=== PATIENT | female | born 1955 | race Caucasian/White ===

== ENCOUNTER → 2016-09-09 | Outpatient (CLI) | payer MEDICARE, OTHER ==
[~2016-09-09] MED LIST: AMARYL4 MG PO; FLEXERIL5 MG PO; GLUCOPHAGE1000 MG PO; GLUCOPHAGE500 MG/TAB PO; LANTUS100 U/ML SC; NORCO 325 MG-7.1 TAB PO; ZOCOR5 MG PO
== END ==
LOC: MHCPAIN 09:23
DX: G89.29 Other chronic pain (principal); M47.817 Spondylosis without myelopathy or radiculopathy, lumbosacral region; M54.16 Radiculopathy, lumbar region; M53.3 Sacrococcygeal disorders, not elsewhere classified; M96.1 Postlaminectomy syndrome, not elsewhere classified; M54.81 Occipital neuralgia; M50.90 Cervical disc disorder, unspecified, unspecified cervical region; Z87.891 Personal history of nicotine dependence
CPT/HCPCS: G0463

== ENCOUNTER → 2016-09-14 | Outpatient (CLI) | payer MEDICARE, OTHER | LOC: MHCPAIN 11:01 | DX: G89.29 Other chronic pain (principal); M47.817 Spondylosis without myelopathy or radiculopathy, lumbosacral region; M54.16 Radiculopathy, lumbar region; M53.3 Sacrococcygeal disorders, not elsewhere classified; M54.81 Occipital neuralgia; M50.90 Cervical disc disorder, unspecified, unspecified cervical region; G47.00 Insomnia, unspecified; M96.1 Postlaminectomy syndrome, not elsewhere classified; Z87.891 Personal history of nicotine dependence | CPT/HCPCS: G0463; J1040 ==

== ENCOUNTER → 2016-09-21 | Outpatient (CLI) | payer MEDICARE, OTHER | LOC: MHCPAIN 07:32 | DX: G57.02 Lesion of sciatic nerve, left lower limb (principal); G57.01 Lesion of sciatic nerve, right lower limb | CPT/HCPCS: J1040 ==

== ENCOUNTER → 2016-10-27 | Outpatient (CLI) | payer MEDICARE, OTHER ==
[~2016-10-27] MED LIST changes: +ALBUTEROL0.83 MG/ML IH; +AMBIEN 5MG TABLE5 MG PO; +BROVANA15 MCG/2 M IH; +CARAFATE 1GM1 G PO; +CRESTOR5 MG PO; +DEPAKOTE ER 50500 MG PO; +FERRO-TIME325 MG PO; +FLONASEALLERGY NS; +HCTZ 25MG TAB25 MG PO; +K-DUR20 MEQ PO; +KLOR-CON M2020 MEQ PO; +LASIX 40MG TABL40 MG PO; +LASIX 40MG40 MG/4 ML IJ; +LEVEMIR FLEX100 U/ML SQ; +LEVEMIR100 U/ML SQ; +LEVOXYL0.1 MG PO; +LEVOXYL0.125 MG PO; +MYRBETR50MG PO; +NEURONTIN300 MG/CAP PO; +NITROSTAT0.4 MG/TAB SL; +NORCO 325 MG-51 TAB PO; +NOVOLOGMIX70/30 SQ; +PLAVIX 75MG TAB75 MG PO; +PRILOSEC 20MG20 MG PO; +PULMICORT0.5 MG/2 M IH; +REQUIP 0.5MG0.5 MG PO; +SINGULAIR 110 MG/TAB PO; +SPIRIVA RE2.5 MCG/Ac IH; +TAGAMET300 MG PO; +TOPROL XL 50MG50 MG PO; +TYLENOL 325MG325 MG PO
== END ==
LOC: MHCPAIN 12:13
DX: G89.29 Other chronic pain (principal); M47.817 Spondylosis without myelopathy or radiculopathy, lumbosacral region; M54.81 Occipital neuralgia; M50.90 Cervical disc disorder, unspecified, unspecified cervical region; R51 Headache; Z87.891 Personal history of nicotine dependence
CPT/HCPCS: G0463

== ENCOUNTER → 2016-11-02 | Outpatient (CLI) | payer MEDICARE, OTHER ==
[~2016-11-02] MED LIST changes: -ALBUTEROL0.83 MG/ML IH; -AMBIEN 5MG TABLE5 MG PO; -BROVANA15 MCG/2 M IH; -CARAFATE 1GM1 G PO; -CRESTOR5 MG PO; -DEPAKOTE ER 50500 MG PO; -FERRO-TIME325 MG PO; -FLONASEALLERGY NS; -HCTZ 25MG TAB25 MG PO; -K-DUR20 MEQ PO; -KLOR-CON M2020 MEQ PO; -LASIX 40MG TABL40 MG PO; -LASIX 40MG40 MG/4 ML IJ; -LEVEMIR FLEX100 U/ML SQ; -LEVEMIR100 U/ML SQ; -LEVOXYL0.1 MG PO; -LEVOXYL0.125 MG PO; -MYRBETR50MG PO; -NEURONTIN300 MG/CAP PO; -NITROSTAT0.4 MG/TAB SL; -NORCO 325 MG-51 TAB PO; -NOVOLOGMIX70/30 SQ; -PLAVIX 75MG TAB75 MG PO; -PRILOSEC 20MG20 MG PO; -PULMICORT0.5 MG/2 M IH; -REQUIP 0.5MG0.5 MG PO; -SINGULAIR 110 MG/TAB PO; -SPIRIVA RE2.5 MCG/Ac IH; -TAGAMET300 MG PO; -TOPROL XL 50MG50 MG PO; -TYLENOL 325MG325 MG PO
== END ==
LOC: MHCPAIN 11:46
DX: M54.81 Occipital neuralgia (principal)
CPT/HCPCS: J1100

== ENCOUNTER → 2017-02-01 | Outpatient (CLI) | payer MEDICARE, OTHER | LOC: MHCPAIN 11:49 | DX: G89.29 Other chronic pain (principal); R51 Headache; M50.90 Cervical disc disorder, unspecified, unspecified cervical region; Z87.891 Personal history of nicotine dependence | CPT/HCPCS: G0463 ==

== ENCOUNTER → 2017-03-30 | Outpatient (CLI) | payer MEDICARE, OTHER | LOC: MHCPAIN 12:31 | DX: G89.29 Other chronic pain (principal); M50.90 Cervical disc disorder, unspecified, unspecified cervical region; R51 Headache; Z87.891 Personal history of nicotine dependence | CPT/HCPCS: G0463 ==

== ENCOUNTER → 2017-04-01 | Outpatient (CLI) | payer MEDICARE, OTHER | LOC: MHCPAIN 11:37 | DX: M50.321 Other cervical disc degeneration at C4-C5 level (principal) ==

== ENCOUNTER → 2017-04-07 | Outpatient (CLI) | payer MEDICARE, OTHER | LOC: MHCPAIN 13:13 | DX: G89.29 Other chronic pain (principal); M50.90 Cervical disc disorder, unspecified, unspecified cervical region; R51 Headache | CPT/HCPCS: G0463 ==

== ENCOUNTER → 2017-05-06 | Outpatient (CLI) | payer MEDICARE, OTHER | LOC: MHCPAIN 07:37 | DX: M50.31 Other cervical disc degeneration, high cervical region (principal) ==

== ENCOUNTER → 2017-05-10 | Outpatient (CLI) | payer MEDICARE, OTHER | LOC: MHCPAIN 13:24 | DX: G89.29 Other chronic pain (principal); M50.90 Cervical disc disorder, unspecified, unspecified cervical region; R51 Headache | CPT/HCPCS: G0463 ==

== ENCOUNTER → 2017-05-27 | Outpatient (CLI) | payer MEDICARE, OTHER | LOC: MHCPAIN 09:07 | DX: M50.31 Other cervical disc degeneration, high cervical region (principal) | CPT/HCPCS: J2250; J3010 ==

== ENCOUNTER → 2017-07-05 | Outpatient (CLI) | payer MEDICARE, OTHER | LOC: MHCPAIN 12:22 | DX: G89.29 Other chronic pain (principal); M50.30 Other cervical disc degeneration, unspecified cervical region; M54.16 Radiculopathy, lumbar region; R51 Headache; Z87.891 Personal history of nicotine dependence | CPT/HCPCS: G0463 ==

== ENCOUNTER → 2017-07-14 | Outpatient (CLI) | payer MEDICARE, OTHER | LOC: MHCPAIN 11:48 | DX: G57.02 Lesion of sciatic nerve, left lower limb (principal) | CPT/HCPCS: J1040 ==

== ENCOUNTER → 2017-10-26 | Outpatient (CLI) | payer MEDICARE, OTHER | LOC: MHCPAIN 12:21 | DX: G89.29 Other chronic pain (principal); M47.817 Spondylosis without myelopathy or radiculopathy, lumbosacral region; M54.16 Radiculopathy, lumbar region; M53.3 Sacrococcygeal disorders, not elsewhere classified; M54.81 Occipital neuralgia; M50.90 Cervical disc disorder, unspecified, unspecified cervical region; R51 Headache | CPT/HCPCS: G0463 ==

== ENCOUNTER 2017-12-09 13:03 | Outpatient (RCR) | payer MEDICARE, OTHER | END 2018-03-09 | disposition home or self-care (01) | LOC: WSST | DX: R13.10 Dysphagia, unspecified (principal); K22.2 Esophageal obstruction | CPT/HCPCS: G8996-GN; G8997-GN; G8998-GN ==

== ENCOUNTER → 2017-12-16 | Outpatient (CLI) | payer MEDICARE, OTHER | LOC: COL.RAD 06:40 | DX: K22.2 Esophageal obstruction (principal) | CPT/HCPCS: A9541 ==

== ENCOUNTER → 2017-12-17 | Outpatient (CLI) | payer MEDICARE, OTHER | LOC: COL.RAD 08:31 | DX: K22.2 Esophageal obstruction (principal) | CPT/HCPCS: G8996-GN; G8997-GN; G8998-GN ==

== ENCOUNTER → 2018-01-25 | Outpatient (CLI) | payer MEDICARE, OTHER | LOC: MHCPAIN 13:00 | DX: G89.29 Other chronic pain (principal); M47.817 Spondylosis without myelopathy or radiculopathy, lumbosacral region; M54.16 Radiculopathy, lumbar region; M53.3 Sacrococcygeal disorders, not elsewhere classified; M96.1 Postlaminectomy syndrome, not elsewhere classified; M54.81 Occipital neuralgia; M50.90 Cervical disc disorder, unspecified, unspecified cervical region; R51 Headache | CPT/HCPCS: G0463 ==

== ENCOUNTER → 2018-02-02 | Outpatient (CLI) | payer MEDICARE, OTHER | LOC: MHCPAIN 10:39 | DX: M25.551 Pain in right hip (principal) | CPT/HCPCS: J1040 ==

== ENCOUNTER 2018-06-28 11:13 | Inpatient (IN) | payer MEDICARE, OTHER ==
[~2018-06-28] VITALS: Ht 160 cm; Wt 103.3 kg
[2018-06-28 12:15] VITALS: BP 120/64
--- NOTE | 2018-06-28 12:15 | NUR ---
PATIENT ADMITED VIA EMS INTO ROOM 312 FROM [place]. PATIENT WAS ADMITED IN [place] FOR CHEST PAIN, SOB, BLE EDEMA AND CHF EXACERBATION. PATIENT CURRENTLY DENIES SOB OR CHEST PAIN. BLE EDEMA REPORTEDLY IMPROVED FROM IV LASIX GIVEN IN HESSEL. NOTE +2 BLE EDEMA, NON PITTING. +2 PEDAL PULSES. A&P LUNG JENKINS CLEAR WITH SLIGHTLY DEMINISHED BASES. PATIENT HAS HX OF CHF. HEAD TO TOE ASSESSMENT COMPLETE. LEFT AC IV AND RIGHT FORARM IV TO INT. PATIENT ASKING ABOUT EATTING. ADA/AHA DIET. PATIENT ORIENTED TO ROOM. NO FAMILY AT BEDSIDE. CALL LIGHT IN REACH.
[2018-06-28] MEDS ORDERED: CARAFATE 1GM1 G PO (14:22)
[2018-06-28] MEDS ORDERED: DEPAKOTE ER 50500 MG PO (14:23)
[2018-06-28] MEDS ORDERED: CRESTOR5 MG PO (14:23)
[2018-06-28] MEDS ORDERED: MYRBETR50MG PO (14:24)
[2018-06-28] MEDS ORDERED: LASIX 40MG TABL40 MG PO (14:24)
[2018-06-28] MEDS ORDERED: BROVANA15 MCG/2 M IH (14:24)
[2018-06-28] MEDS ORDERED: TAGAMET300 MG PO (14:25)
[2018-06-28] MEDS ORDERED: PULMICORT0.5 MG/2 M IH (14:25)
[2018-06-28] MEDS ORDERED: FLONASEALLERGY NS (14:26)
[2018-06-28] MEDS ORDERED: FERRO-TIME325 MG PO (14:26)
[2018-06-28] MEDS ORDERED: NEURONTIN300 MG/CAP PO (14:26)
[2018-06-28] MEDS ORDERED: NOVOLOGMIX70/30 SQ ×2 (14:27→15:36)
[2018-06-28] MEDS ORDERED: HCTZ 25MG TAB25 MG PO (14:27)
[2018-06-28] MEDS ORDERED: LEVEMIR FLEX100 U/ML SQ (14:28)
[2018-06-28] MEDS ORDERED: LEVOXYL0.125 MG PO (14:29)
[2018-06-28] MEDS ORDERED: SINGULAIR 110 MG/TAB PO (14:29)
[2018-06-28] MEDS ORDERED: LEVOXYL0.1 MG PO (14:29)
[2018-06-28] MEDS ORDERED: PRILOSEC 20MG20 MG PO (14:30)
[2018-06-28] MEDS ORDERED: KLOR-CON M2020 MEQ PO (14:31)
[2018-06-28] MEDS ORDERED: SPIRIVA RE2.5 MCG/Ac IH (14:32)
[2018-06-28] MEDS ORDERED: REQUIP 0.5MG0.5 MG PO (14:32)
[2018-06-28] MEDS ORDERED: AMBIEN 5MG TABLE5 MG PO (14:33)
[2018-06-28] MEDS ORDERED: NORCO 325 MG-51 TAB PO (15:32)
[2018-06-28] MEDS ORDERED: LEVEMIR100 U/ML SQ (15:37)
[2018-06-28] MEDS ORDERED: K-DUR20 MEQ PO (15:40)
[2018-06-28] MEDS ORDERED: LASIX 40MG40 MG/4 ML IJ (15:43)
[2018-06-28] MEDS ORDERED: TYLENOL 325MG325 MG PO (15:47)
[2018-06-28] MEDS ORDERED: ALBUTEROL0.83 MG/ML IH (15:48)
[2018-06-28] MEDS ORDERED: PLAVIX 75MG TAB75 MG PO (16:05)
[2018-06-28] MEDS ORDERED: NITROSTAT0.4 MG/TAB SL (16:05)
[2018-06-28] MEDS ORDERED: TOPROL XL 50MG50 MG PO (16:05)
[2018-06-28 16:28] VITALS: BP 134/70; PULSE 76; TEMP 97.8
[2018-06-28 20:48] VITALS: BP 120/53; PULSE 86; TEMP 98.6
--- NOTE | 2018-06-28 21:00 | NUR ---
pt resting in bed A+Ox4. reports no pain. no SOA. BS 165- insulin given. no needs at this time. shift assessment complete. call light in reach
[2018-06-28 23:59] VITALS: BP 132/50; PULSE 80; TEMP 98.8
[2018-06-29] VITALS (9 sets, daily range): BP systolic 110–156; BP diastolic 52–81; PULSE 77–88; TEMP 97.9–98.7
--- NOTE | 2018-06-29 05:08 | NUR ---
pt had an uneventful night. reported no pain. pt reports not being able to sleep during night, reports it might be nerves for the heart cath today. pt has been NPO since midnight. VSS. no needs at this time. call light in reach
[2018-06-29 06:57] LABS: BASO % 0.5 % (0.0-2.0); EOS # 0.1 (0.0-0.7); EOS % 2.3 % (0-4.0); GRAN # 2.1 (1.4-6.5); GRAN % 49.4 % (42.2-75.2); HEMATOCRIT 37.6 % (37.0-47.0); HEMOGLOBIN 12.2 g/dl (12.5-16.0); LYMPH # 1.5 (1.2-3.4); LYMPH % 35.1 % (20.0-51.0); MEAN CELL VOLUME 96 fl (80.0-100.0); MEAN CORPUSCULAR HEMOGLOBIN 31 pg (27.0-31.0); MEAN CORPUSCULAR HGB CONC 32 g/dl (33.0-37.0); MONO # 0.5 (0.1-0.6); MONO % 12.2 % (1.7-9.3); PLATELET COUNT 99 K/mm3 (130-400); REDCELL DISTRIBUTION WIDTH-CV 13.6 % (11.5-14.5)
--- NOTE | 2018-06-29 06:57 | NUR ---
report given to STAR ALVAREZ. no needs at this time
[2018-06-29 07:15] LABS: BLOOD UREA NITROGEN 23 mg/dL (7-17); CREATININE, serum 0.76 (0.52-1.25); GLUCOSE 98 mg/dL (74-106)
--- NOTE | 2018-06-29 07:15 | NUR ---
Report received from STAR Douglas. PT in bed resting with at bedside, anitipating HC today with Dr. Lindsay, will continue to monitor.
[2018-06-29 07:16] LABS: ANION GAP 10 mmol/L (7-16); CALCIUM 9.5 mg/dL (8.4-10.2); CARBON DIOXIDE 28 mmol/L (22-30); CHLORIDE 106 mmol/L (98-107); POTASSIUM 3.9 mmol/L (3.4-5.0); SODIUM 144 mmol/L (137-145)
[2018-06-29 07:28] LABS: TROPONIN-I < 0.012 ng/mL (0.000-0.035)
--- NOTE | 2018-06-29 07:42 | NUR ---
Called Dr. Lindsay, he will be doing heart cath at 1200 today, ok to give all am meds except insulin and lasix. Will provide
--- NOTE | 2018-06-29 10:53 | NUR ---
Pt aware of plan of care. Assessment charted. Doing well, denies pain but states she did have soem chest pain this am that was 04/03. Will continue to monitor.
--- NOTE | 2018-06-29 12:00 | NUR ---
Pt went down for heart cath with biology laboratory assistant nurse via bed, will await return
--- NOTE | 2018-06-29 12:30 | NUR ---
ALL MEDICATIONS GIVEN VORB WITH MD. SEE MERGE FOR ALL MEDICATION ADMIN TIMES. SEE MERGE FOR ALL RASS DOCUMENTATION. POSITIVE BARBEAU'S TEST IN THE RIGHT WRIST.
--- NOTE | 2018-06-29 13:00 | NUR ---
Pt returned to floor at this time via bed with central lab technician staff. Flushed cheeks, but feels fine, VSS. R radial site WA no bleeding with band in place. Ordering food, ice water provided, at bedside, will continue to monitor.
--- NOTE | 2018-06-29 13:30 | NUR ---
MATI met with the patient and patient's , Harshal, to discuss discharge plan. The patient lives in [place] with her . She reports independence and does not use any DME. The patient's PCP is Dr. Harshal Vasquez and she receives her medications at the [facility] in [place]. She reports no difficulties obtaining her meds. The patient does not have advanced directives in EMR, but states that she does have them completed and at home. She states her is her DPOA-HC. The patient plans to return home with her upon discharge. No additional needs at this time.
--- NOTE | 2018-06-29 16:18 | NUR ---
Called Dr. Lindsay, he will not be starting any new meds at this time. Ok with discharge. Will continue to monitor.
--- NOTE | 2018-06-29 17:20 | NUR ---
Pt discharge completed at this time. Pt recieved discharge packet, discussed f/u appointment, dischage packet reviewed, answered all questions. INT d/c'd, tip intact. Pt R arm remains CDI, TR band off, bandaid applied, reviewed restrictions. Left via wc with medical staff. Family to drive home. Criteria met.
== END 2018-06-29 17:20 | disposition home or self-care (01) | DRG 287 ==
LOC: MEDICAL 11:13
PROVIDERS: Physician Assistant; ADMIT Family Medicine
PROC: 4A023N7 Measurement of Cardiac Sampling and Pressure, Left Heart, Percutaneous Approach (ICD-10-PCS; principal; 2018-06-29)
PROC: B2111ZZ Fluoroscopy of Multiple Coronary Arteries using Low Osmolar Contrast (ICD-10-PCS; principal; 2018-06-29)
DX: I25.119 Atherosclerotic heart disease of native coronary artery with unspecified angina pectoris (principal); I50.30 Unspecified diastolic (congestive) heart failure; Z79.4 Long term (current) use of insulin; E03.9 Hypothyroidism, unspecified; I11.0 Hypertensive heart disease with heart failure; E11.42 Type 2 diabetes mellitus with diabetic polyneuropathy; E78.5 Hyperlipidemia, unspecified; K21.9 Gastro-esophageal reflux disease without esophagitis; G47.33 Obstructive sleep apnea (adult) (pediatric); Z79.84 Long term (current) use of oral hypoglycemic drugs; Z88.2 Allergy status to sulfonamides; Z88.8 Allergy status to other drugs, medicaments and biological substances; Z87.891 Personal history of nicotine dependence; J44.9 Chronic obstructive pulmonary disease, unspecified
CPT/HCPCS: 99222-AI; 99232-AI; J1644; J1815; J2250; J3010; J7030; Q9967

== ENCOUNTER → 2019-07-07 | Outpatient (CLI) | payer MEDICARE, OTHER ==
[~2019-07-07] MED LIST changes: +ALBUTEROL0.83 MG/ML IH; +AMBIEN 5MG TABLE5 MG PO; +ASPIRIN 81M81 MG/TA2 PO; +BROVANA15 MCG/2 M IH; +CARAFATE 1GM1 G PO; +CRESTOR5 MG PO; +DEPAKOTE ER 50500 MG PO; +FERRO-TIME325 MG PO; +FLONASEALLERGY NS; +HCTZ 25MG TAB25 MG PO; +IMITREX100 MG PO; +K-DUR20 MEQ PO; +KLOR-CON M2020 MEQ PO; +LASIX 40MG TABL40 MG PO; +LASIX 40MG40 MG/4 ML IJ; +LEVEMIR FLEX100 U/ML SQ; +LEVEMIR100 U/ML SQ; +LEVOXYL0.1 MG PO; +LEVOXYL0.125 MG PO; +MYRBETR50MG PO; +NEURONTIN300 MG/CAP PO; +NITROSTAT0.4 MG/TAB SL; +NORCO 325 MG-51 TAB PO; +NOVOLOGMIX70/30 SQ; +PEPCID 20MG TAB20 MG PO; +PLAVIX 75MG TAB75 MG PO; +PRILOSEC 20MG20 MG PO; +PULMICORT0.5 MG/2 M IH; +REQUIP 0.5MG0.5 MG PO; +SINGULAIR 110 MG/TAB PO; +SPIRIVA RE2.5 MCG/Ac IH; +TAGAMET300 MG PO; +TOPROL XL 50MG50 MG PO; +TYLENOL 325MG325 MG PO; +VOLTAREN 50MG T50 MG PO; +ZOCOR 10MG10 MG PO
== END ==
LOC: COL.RAD 12:12
DX: M79.671 Pain in right foot (principal)
CPT/HCPCS: J3301; Q9967

== ENCOUNTER 2021-01-07 09:22 | Outpatient (CLI) | payer MEDICARE, OTHER ==
--- NOTE | 2021-01-02 09:47 | NUR ---
LMOM WITH INFORMATION AND CALL BACK NUMBER.
[~2021-01-07] VITALS: Ht 160 cm; Wt 102.3 kg
[2021-01-07] VITALS (7 sets, daily range): BP systolic 132–147; BP diastolic 58–75; PULSE 68–84; TEMP 98.1
[2021-01-07] MEDS ORDERED: AIMOVIG AU70 MG/1 M1 SQ (09:59)
[2021-01-07] MEDS ORDERED: NOVOLIN 70/30 710 ML SQ (10:00)
[2021-01-07 11:26] LABS: CSF APPEARANCE CLEAR; CSF COLOR COLORLESS; CSF RBC 6 /mm3 (0-0)
[2021-01-07 11:48] LABS: CSF MONONUCLEAR 100 % (70-100); CSF POLYMORPHONUCLEAR 0 % (0-6)
[2021-01-07 11:55] LABS: GLUCOSE,CSF 164 mg/dL (40-70)
[2021-01-10 13:45] LABS: CSF IGG/ALBUMIN 0.14 (<=0.21); CSF,IGG 3.6 mg/dL (<=8.1)
[2021-01-10 14:41] LABS: CSF OLIG BD INTERPRETATION 3 bands (<2); SE OLIGOCLONAL BANDING 3 bands (())
[2021-01-10 22:27] LABS: ALBUMUN SERUM 4000 mg/dL (()); CSF-IGG INDEX 0.48 (<=0.85); IGG,SERUM 1170 mg/dL (()); IGG/ALBUMIN SERUM 0.29 (<=0.40)
== END 2021-01-07 12:59 ==
LOC: COL.RAD 09:22
PROVIDERS: Psychiatry & Neurology Neurology
DX: R26.89 Other abnormalities of gait and mobility (principal)

== ENCOUNTER 2021-03-31 17:14 | Emergency (ER) | payer MEDICARE, OTHER ==
[~2021-03-31] VITALS: Ht 160 cm; Wt 106.8 kg
[~2021-03-31 17:14] MED LIST changes: +AIMOVIG AU70 MG/1 M1 SQ; +NOVOLIN 70/30 710 ML SQ
[2021-03-31 17:51] VITALS: TEMP 98.9
[2021-03-31 19:46] LABS: BASO % 0.8 % (0.0-2.0); EOS # 0.1 K/mm3 (0.0-0.7); EOS % 3.6 % (0.0-4.0); GRAN # 2.2 K/mm3 (1.4-6.5); GRAN % 56.6 % (42.2-75.2); HEMOGLOBIN 12.2 g/dl (12.5-16.0); LYMPH # 1.1 K/mm3 (1.2-3.4); LYMPH % 28.4 % (20.0-51.0); MEAN CELL VOLUME 98 fl (80.0-100.0); MEAN CORPUSCULAR HEMOGLOBIN 32 pg (27-31); MEAN CORPUSCULAR HGB CONC 33 g/dl (33.0-37.0); MEAN PLATELET VOLUME 13.2 fl (7.4-10.4); MONO # 0.4 K/mm3 (0.1-0.6); MONO % 10.1 % (1.7-9.3); PLATELET COUNT 81 K/mm3 (130-400); RED BLOOD COUNT 3.76 M/mm3 (4.10-5.30)
[2021-03-31 19:47] LABS: HEMATOCRIT 36.8 % (37.0-47.0)
[2021-03-31 20:05] LABS: ALBUMIN 3.3 gm/dL (3.4-4.8); CALCIUM 9.6 mg/dL (8.4-10.2); CREATININE, serum 1.45 mg/dL (0.57-1.11); TOTAL PROTEIN 7.9 gm/dL (6.2-8.1)
[2021-03-31 20:11] LABS: TROPONIN-I 0.012 ng/mL (0.00-0.033)
[2021-03-31] MEDS ORDERED: KLOR-CON20 MEQ PO (22:07)
[2021-03-31 22:43] VITALS: BP 138/82; PULSE 78
== END 2021-03-31 22:43 | disposition home or self-care (01) ==
LOC: COL.ER 17:14
PROVIDERS: Personal Emergency Response Attendant
DX: N28.9 Disorder of kidney and ureter, unspecified (principal); E87.6 Hypokalemia; R07.81 Pleurodynia; E03.9 Hypothyroidism, unspecified; E11.65 Type 2 diabetes mellitus with hyperglycemia; E78.5 Hyperlipidemia, unspecified; I11.0 Hypertensive heart disease with heart failure; I50.9 Heart failure, unspecified; J44.9 Chronic obstructive pulmonary disease, unspecified; Z79.890 Hormone replacement therapy; Z79.4 Long term (current) use of insulin; Z79.82 Long term (current) use of aspirin; Z79.899 Other long term (current) drug therapy
CPT/HCPCS: J2270; J2405; Q9967

== ENCOUNTER → 2023-05-13 | Outpatient (CLI) | payer MEDICARE, OTHER ==
[~2023-05-13] MED LIST changes: +KLOR-CON20 MEQ PO
== END ==
LOC: MC.RAD 09:50
DX: Z12.31 Encounter for screening mammogram for malignant neoplasm of breast (principal)